=== PATIENT | male | born 1965 | race Caucasian/White ===

== ENCOUNTER 2016-07-14 17:59 | Emergency (ER) | payer OTHER, BC ==
[~2016-07-14] VITALS: Ht 177.8 cm; Wt 120.5 kg
[~2016-07-14 17:59] MED LIST: AMLODIPINE BES2.5 MG PO; ARTHRITIS MED; CIPROFLOXACIN500 M1 PO; ENDOCET 5-3251 EACH PO; EPZICOM1 TABLET PO; LOPRESSOR25 MG PO; METRONIDAZOLE500 MG PO; NABUMETONE500 MG PO; NORVIR100 M1 PO; REYATAZ300 MG PO; TRIUMEQ TABLET1 EACH PO
[2016-07-14 20:43] VITALS: BP 144/83
== END 2016-07-14 20:47 | disposition home or self-care (01) ==
LOC: EME 17:59
DX: S90.01XA Contusion of right ankle, initial encounter (principal); S00.81XA Abrasion of other part of head, initial encounter; V49.40XA Driver injured in collision with unspecified motor vehicles in traffic accident, initial encounter; I10 Essential (primary) hypertension; Z21 Asymptomatic human immunodeficiency virus [HIV] infection status; Z96.649 Presence of unspecified artificial hip joint; F17.200 Nicotine dependence, unspecified, uncomplicated
CPT/HCPCS: 71010; 73610; 80053; 85025; 85610; 99281; 99283

== ENCOUNTER 2016-09-19 09:29 | Inpatient (IN) | payer OTHER, BC ==
[~2016-09-19] VITALS: Ht 177.8 cm; Wt 118.2 kg
[2016-09-19 10:07] LABS: EOSINOPHIL (%) 0.2 % (0-5); HEMATOCRIT 46.7 % (38.0-50.0); IMMATURE GRANULOCYTE (%) 0.5 % (0.0-0.7); IMMATURE GRANULOCYTE COUNT 0.1 K/uL; INSTRUMENT ABS NEUTROPHIL CT 8.5 K/uL; LYMPHOCYTE COUNT 1.2 K/uL (1.0-2.8); MCH 29.1 PG (29.0-34.0); MCV 88.3 FL (86-99); MEAN PLAT.VOLUME 8.6 uM^3 (9.0-12.4); MONOCYTE (%) 11.5 % (3-12); MONOCYTE COUNT 1.3 K/uL (0-0.8); NEUTROPHIL COUNT 8.5 K/uL (1.8-6.4); PLATELET COUNT 246 K/uL (156-360); RBC DIS.WIDTH-CV 11.8 % (11.8-14.6); RBC DIS.WIDTH-SD 37.9 % (39-53); RED BLOOD COUNT 5.29 M/uL (4.00-5.50)
[2016-09-19 10:17] LABS: CHLORIDE 102 mEq/L (99-109); POTASSIUM 3.9 mEq/L (3.7-5.4); SODIUM 137 mEq/L (136-147)
[2016-09-19 10:18] LABS: GLUCOSE 132 mg/dL (70-99)
[2016-09-19 10:20] LABS: ANION GAP 11 MEQ/L (2-14)
[2016-09-19 10:22] LABS: GFR ESTIMATE (CALCULATED) > 59 mL/min/
[2016-09-19 10:23] LABS: UREA NITROGEN (BUN) 11 mg/dL (9-23)
[2016-09-19 10:31] LABS: TROP-I INTERPRETATION NEGATIVE; TROPONIN-I < 0.01 ng/mL (0.0-0.30)
[2016-09-19 12:00] LABS: INTER. NORMALIZED RATIO 1.2; PROTHROMBIN TIME 11.9 (9.2-11.2); PTT 29.3 (25-32)
[2016-09-19 13:03] LABS: CARBOXY HGB 1.9 % (0-5)
[2016-09-19 13:04] LABS: COMMENTS - BLOOD GASES A+C+; DEVICE NC; O2 FLOW 4.5 L/MIN; PCO2 33 mm Hg (35-45); PO2 53 mm Hg (80-100); SITE LR; TOTAL RESP RATE 34 resp/min; pH 7.47 (7.35-7.45)
[2016-09-19 16:40] VITALS: BP 143/93
[2016-09-19 16:45] VITALS: BP 143/93
[2016-09-19 17:00] VITALS: BP 169/80
[2016-09-19 18:00] VITALS: BP 165/82
[2016-09-19 18:02] LABS: METH RESISTANT S AUREUS PCR NEGATIVE (NEGATIVE)
[2016-09-19 18:07] LABS: PROBE CHECK PASS; SPECIMEN PROCESSING CONTROL PASS
[2016-09-19 21:00] VITALS: BP 133/89
[2016-09-20] VITALS: BP 148/79
[2016-09-20 04:00] VITALS: BP 135/75
[2016-09-20 08:00] VITALS: BP 149/79
[2016-09-20 08:26] LABS: MCH 29.5 PG (29.0-34.0); MCHC 33.1 G/DL (30.0-36.0); MCV 89.2 FL (86-99); PLATELET COUNT 209 K/uL (156-360); RBC DIS.WIDTH-CV 11.9 % (11.8-14.6); RED BLOOD COUNT 4.71 M/uL (4.00-5.50)
[2016-09-20 08:50] LABS: ANION GAP 10 MEQ/L (2-14); CHLORIDE 101 MEQ/L (99-109); GFR ESTIMATE (CALCULATED) > 59 mL/min/; GLUCOSE 121 mg/dL (70-99); POTASSIUM 3.7 MEQ/L (3.7-5.4); SAMPLE HEMOLYSIS CHECK 0; SAMPLE ICTERIC CHECK 0; SAMPLE LIPEMIA CHECK 0; SODIUM 136 MEQ/L (136-147); UREA NITROGEN (BUN) 11 mg/dL (9-23)
[2016-09-20 12:00] VITALS: BP 149/78
[2016-09-20 16:00] VITALS: BP 168/104
[2016-09-20 20:15] VITALS: BP 138/73
[2016-09-21] VITALS (11 sets, daily range): BP systolic 107–161; BP diastolic 67–93
[2016-09-21 06:56] LABS: HEMATOCRIT 39.3 % (38.0-50.0); MCH 29.1 PG (29.0-34.0); MCHC 32.8 G/DL (30.0-36.0); MCV 88.5 FL (86-99); MEAN PLAT.VOLUME 9.2 uM^3 (9.0-12.4); PLATELET COUNT 267 K/uL (156-360); RBC DIS.WIDTH-SD 38.5 % (39-53); RED BLOOD COUNT 4.44 M/uL (4.00-5.50); WHITE BLOOD COUNT 11.2 K/uL (4.1-10.2)
[2016-09-21 07:18] LABS: ANION GAP 11 MEQ/L (2-14); CHLORIDE 103 MEQ/L (99-109); GFR ESTIMATE (CALCULATED) > 59 mL/min/; GLUCOSE 94 mg/dL (70-99); POTASSIUM 3.4 MEQ/L (3.7-5.4); SAMPLE HEMOLYSIS CHECK 0; SAMPLE ICTERIC CHECK 0; SAMPLE LIPEMIA CHECK 0; SODIUM 139 MEQ/L (136-147); UREA NITROGEN (BUN) 13 mg/dL (9-23)
[2016-09-21 19:49] LABS: C DIFF TOXIN NEGATIVE (NEGATIVE)
[2016-09-21 20:09] LABS: PROBE CHECK PASS; SPECIMEN PROCESSING CONTROL PASS
[2016-09-22] VITALS (10 sets, daily range): BP systolic 126–151; BP diastolic 71–94
[2016-09-22 06:20] LABS: MCH 29.6 PG (29.0-34.0); MCHC 33.5 G/DL (30.0-36.0); MCV 88.3 FL (86-99); PLATELET COUNT 338 K/uL (156-360); RBC DIS.WIDTH-CV 11.9 % (11.8-14.6); RBC DIS.WIDTH-SD 38.5 % (39-53); RED BLOOD COUNT 4.53 M/uL (4.00-5.50); WHITE BLOOD COUNT 9.7 K/uL (4.1-10.2)
[2016-09-22 06:44] LABS: ANION GAP 9 MEQ/L (2-14); CHLORIDE 104 MEQ/L (99-109); GFR ESTIMATE (CALCULATED) > 59 mL/min/; GLUCOSE 92 mg/dL (70-99); POTASSIUM 3.5 MEQ/L (3.7-5.4); SAMPLE HEMOLYSIS CHECK 0; SAMPLE ICTERIC CHECK 0; SAMPLE LIPEMIA CHECK 0; SODIUM 141 MEQ/L (136-147); UREA NITROGEN (BUN) 14 mg/dL (9-23)
[2016-09-23] VITALS: BP 124/76
[2016-09-23 04:00] VITALS: BP 146/78
[2016-09-23 08:00] VITALS: BP 140/85
[2016-09-23] MEDS ORDERED: LOPRESSOR25 MG PO (08:59)
[2016-09-23] MEDS ORDERED: SPIRIVA RESPIMAT4 GM IH (08:59)
[2016-09-23] MEDS ORDERED: XARELTO15 MG PO (08:59)
[2016-09-23] MEDS ORDERED: XARELTO20 MG PO (08:59)
[2016-09-23] MEDS ORDERED: ADVAIR HFA120 INHALA IH (09:00)
[2016-09-23] MEDS ORDERED: DULERA 100 MCG/13 GM IH (11:06)
== END 2016-09-23 11:35 | disposition home or self-care (01) | DRG 189 ==
LOC: EME 09:29 → 4WEST 11:51 → EDOF 11:51 → 4WEST 16:29
PROVIDERS: Emergency Medicine; Hospitalist
DX: J96.01 Acute respiratory failure with hypoxia (principal); I26.99 Other pulmonary embolism without acute cor pulmonale; B20 Human immunodeficiency virus [HIV] disease; J44.1 Chronic obstructive pulmonary disease with (acute) exacerbation; R04.2 Hemoptysis; I16.0 Hypertensive urgency; G47.30 Sleep apnea, unspecified; I10 Essential (primary) hypertension; E66.9 Obesity, unspecified; Z96.643 Presence of artificial hip joint, bilateral; Z86.718 Personal history of other venous thrombosis and embolism; Z87.891 Personal history of nicotine dependence; Z68.37 Body mass index [BMI] 37.0-37.9, adult
CPT/HCPCS: 36600; 71010; 71020; 71275; 80048; 82803; 84484; 85025; 85027; 85610; 85730; 87493; 87641; 93005; 93306; 93970; 94640; 94640 76; 94760; 94799; 99202; 99281; 99285; J0696; J2270; J7030; J7050; J7512

== ENCOUNTER 2018-02-11 11:06 | Emergency (ER) | payer OTHER, BC ==
[~2018-02-11] VITALS: Ht 177.8 cm; Wt 121.7 kg
[~2018-02-11 11:06] MED LIST changes: +ADVAIR HFA120 INHALA IH; +DULERA 100 MCG/13 GM IH; +SPIRIVA RESPIMAT4 GM IH; +XARELTO15 MG PO; +XARELTO20 MG PO
[2018-02-11] MEDS ORDERED: FLEXERIL10 MG PO (12:37)
[2018-02-11] MEDS ORDERED: MEDROL DOSEPAK4 MG PO (12:37)
[2018-02-11 12:45] VITALS: BP 156/99
== END 2018-02-11 13:02 | disposition home or self-care (01) ==
LOC: EME 11:06
DX: M62.830 Muscle spasm of back (principal); M54.5 Low back pain; M54.16 Radiculopathy, lumbar region; I10 Essential (primary) hypertension; Z21 Asymptomatic human immunodeficiency virus [HIV] infection status; Z87.891 Personal history of nicotine dependence; Z96.649 Presence of unspecified artificial hip joint
CPT/HCPCS: 72100; 99281; 99284; J1885; J7512